=== PATIENT | female | born 1950 | race Caucasian/White ===

== ENCOUNTER 2018-01-28 15:16 | Inpatient (IN) | payer OTHER ==
[~2018-01-28] VITALS: Ht 172.7 cm; Wt 97.1 kg
[~2018-01-28 15:16] MED LIST: AMOX-CLAV 875-1 EACH PO; ASPIRIN EC81 M1 PO; ATENOLOL25 M1 PO; ATENOLOL25 MG PO; BENZONATATE100 M1 PO; CHERATUSSIN AC118 M1 PO; CLARITHROMYCIN500 M1 PO; COUMADIN 5 MG TA5 MG PO; COUMADIN10 M1 PO; COUMADIN7.5 M1 PO; ECOTRIN81 MG PO; ETHAMBUTOL HCL PO; FUROSEMIDE20 M1 PO; FUROSEMIDE20 MG PO; GABAPENTIN100 M2 PO; GUAIFENESIN DM S5 ML PO; LIVALO2 MG PO; NEURONTIN100 MG PO; RIFABUTIN150 MG PO; SERTRALINE HCL100 MG PO; SERTRALINE HYD100 MG PO; TRAMADOL50 MG PO
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
--- NOTE | 2018-01-28 15:44 | CT SCAN REPORT ---
EXAMINATION: CT HEAD without contrast CLINICAL INFORMATION: Stroke COMPARISON: No prior CT scan available for comparison. TECHNIQUE: Computer axial tomographic sections acquired at 2.5 mm thin section noncontrasted study. DLP: 548 mGy-cm FINDINGS: CEREBRAL HEMISPHERES: There is no evidence of intra-axial or extra-axial mass, hemorrhage or acute infarct. BRAIN PARENCHYMA: Normal valenzuela-white matter differentiation. SUBDURAL SPACE: No bleed. BASAL GANGLIA AND PINEAL GLAND: Unremarkable VENTRICLES: Symmetric and normal in size. CEREBELLUM AND BRAINSTEM: No space-occupying mass, hemorrhage or acute infarct. CEREBELLOPONTINE ANGLES: No lesion found. ORBITS: No intraorbital mass. VESSELS: Unremarkable SKULL BASE: Unremarkable INCLUDED SINUSES AT SKULL BASE: Clear SKULL AND SKIN: No fracture or bone lesion found. IMPRESSION: No CT evidence of intracranial space-occupying mass, bleed or infarct.
[2018-01-28 16:07] LABS: ABSOLUTE BASOPHIL COUNT 0 /CUMM (0.0-0.2); ABSOLUTE EOSINOPHIL COUNT 0.1 /CUMM (0.0-0.7); ABSOLUTE GRANULOCYTE CT 6.6 /CUMM (1.4-6.5); ABSOLUTE LYMPH COUNT 2.2 /CUMM (1.2-3.4); ABSOLUTE MONOCYTE COUNT 0.5 /CUMM (0.10-0.60); BASOPHIL % 0.4 % (0.0-2.0); EOSINOPHIL % 1.5 % (0-5); GRANULOCYTE % 69.8 % (42.2-75.2); HEMATOCRIT 40.5 % (37-47); MEAN CORPUSCULAR HGB 26.2 PG (27.0-31.0); MEAN CORPUSCULAR HGB CONC 32.6 G/DL (33.0-37.0); MEAN CORPUSCULAR VOLUME 80.3 FL (81.0-99.0); MEAN PLATELET VOLUME 7.9 FL (7.4-10.4); PLATELET COUNT 256 /CUMM (130-400); RBC DISTRIBUTION WIDTH 14.9 % (11.5-14.5); RED BLOOD CELL CT 5.04 /CUMM (4.20-5.40); WHITE BLOOD CELL COUNT 9.5 /CUMM (4.8-10.8)
[2018-01-28 16:25] LABS: PT 40.9 SEC (9.4-12.5)
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
[2018-01-28 21:59] VITALS: BP 112/70
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
[2018-01-29 06:30] VITALS: BP 116/62
--- NOTE | 2018-01-29 07:34 | PN- Housestaff ---
Declan Rose 01/29/18 0733: Subjective Follow-up For: small acute L MCA infarct Tele-Events Since Last Visit: NS HR 60-65 Subjective: No complaints or acute events overnight Review of Systems Constitutional: Reports: see HPI. Objective Last 24 Hrs of Vital Signs/I&O Vital Signs Date Time Temp Pulse Resp B/P B/P Pulse O2 O2 Flow FiO2 Mean Ox Delivery Rate 01/29 1438 97.6 56 18 94/56 96 Room Air / 0920 62 110/58 / 0918 62 110/58 03/ 0800 Room Air 03/ 0630 97.9 62 18 116/62 95 03/04 2159 97.8 60 18 112/70 97 03/ 2042 97.7 62 19 144/76 97 Room Air / 1915 69 158/83 03/ 1840 97.6 67 19 158/83 96 Room Air Intake & Output / 1600 01/29 0800 / 0000 Intake Total 120 Output Total Balance 120 Intake, Oral 120 Patient 214 lb 215 lb Weight Weight Bed scale Measurement Method Physical Exam General Appearance: Alert, Oriented X3, Cooperative, No Acute Distress HEENT: Atraumatic, PERRLA, EOMI Cardiovascular: 2/6 systolic murmur, medial sternotomy surgical scar Lungs: Clear to Auscultation, Normal Air Movement Neurological: Normal Gait, Normal Speech, Strength at 5/5 X4 Ext, Normal Tone, Sensation Intact, Cranial Nerves 3-12 NL Extremities: Normal Pulses Current Medications: Current Medications Sig/Heraclio Start time Last Medication Dose Route Stop Time Status Admin Aspirin Buffered 81 MG DAILY 01/29 1000 AC 01/29 PO 0920 Atenolol 25 MG DAILY 01/28 1853 AC 01/29 PO 0920 Atorvastatin Calcium 80 MG 1700 01/29 1700 UNVr PO Furosemide 20 MG DAILY 01/29 1000 CAN PO Gabapentin 200 MG QPM 01/28 2200 AC / PO 2336 Sertraline HCl 100 MG DAILY 01/29 1000 AC / PO 0920 Warfarin Sodium 7.5 MG COUMADIN 1700 ONE 01/28 2359 DC / PO / 0000 2336 Warfarin Sodium 7.5 MG COUMADIN 1700 ONE 01/28 2100 DC PO 01/28 2101 Last 24 Hrs of Lab/Adriano Results Last 24 Hrs of Labs/Mics: Laboratory Tests 01/29/18 1130: Triglycerides 305 H, Cholesterol 302 H, LDL Cholesterol, Calc 205 H, HDL Cholesterol 36 L, Cholesterol/HDL Ratio 8 H 01/29/18 0620: PT 35.5 H, INR 3.22 H 01/28/18 1551: Anion Gap 9, Estimated GFR 55 L, BUN/Creatinine Ratio 19.0, Glucose 93, Calcium 10.6 H, Total Bilirubin 0.9, AST 22, ALT 29, Alkaline Phosphatase 100, Total Protein 6.9, Albumin 4.1, Globulin 2.8, Albumin/Globulin Ratio 1.5, PTH Intact 124.6 H, PT 40.9 H, INR 3.70 H, CBC w Diff NO MAN DIFF REQ, RBC 5.04, MCV 80.3 L, MCH 26.2 L, MCHC 32.6 L, RDW 14.9 H, MPV 7.9, Gran % 69.8, Lymphocytes % 23.3, Monocytes % 5.0, Eosinophils % 1.5, Basophils % 0.4, Absolute Granulocytes 6.6 H, Absolute Lymphocytes 2.2, Absolute Monocytes 0.5, Absolute Eosinophils 0.1, Absolute Basophils 0 Orders Radiology Findings: 01/29/18-1030 [id number] DOPPLER IMPRESSION: There is plaque present in the left internal carotid artery with normal velocities consistent with a minimal 0-49% stenosis. The right side is normal with no plaque seen. 01/29/18-06 MRI-HEAD W/O ALEJO IMPRESSION: - There is a small acute left MCA territory infarct involving the body of the left caudate nucleus, the left frontal hceung radiata, and the upper left putamen. No significant mass effect and no hemorrhagic transformation. - Mild chronic microangiopathy and a chronic lacunar infarct within the right cerebellum. Chronic petechial microhemorrhages within the cerebral hemispheres as described. Assessment/Plan Assessment: Ms. Almaguer is a 67 yo f with a PMH of MVR x2 (bovine, then mechanical) 2009 on Warfarin, hypertension, osteoarthritis, depression who presents to the ED with a R-sided facial droop and R arm weakness L MCA infarct Patient had expressive aphasia and R side apraxia that has now spontaneously resolved. As per neuro she is not a candidate for tPA because she is currently on Warfarin. ECHO 07/2017 demonstrated normal left ventricular ejection fraction visually estimated at >60%, no wall motion abnormality, mechanical valve noted, mild left atrial dilatation, moderate aortic stenosis. CT head on admission negative. Passed bed swallow. * Neurology recommendations appreciated * Cardiology recommendations appreciated * Serial troponins and ECG to r/o ACS negative * TTE to r/o SHD and/or RWMA report pending, if abnormal [facility] to follow * MRI brain showed a small acute L MCA infarct * continue home meds History of mechanical valve * Dose Coumadin as per INR * Will discuss with Neuro if Warfarin should be resumed today after infarct shown on MRI Hyperparathyroidism * Patient will require an outpatient referal to Endocrinology DVT prophylaxis: Warfarin Code: FULL Problem List: 1. Stroke Pain Ratin Pain Location: NA Pain Goal: Remain pain free Pain Plan: NA Tomorrow's Labs & Rationales: CBC BEP INR for Coumadin Cristela Zhou 01/29/18 1537: Attending MD Review Statement Attending Statement Attending MD Statement: examined this patient, discuss w/resident/PA/CALL OR CONTACT CENTRE COACH, agreed w/resident/PA/CALL OR CONTACT CENTRE COACH, reviewed EMR data (avail), discussed with nursing, discussed with case mgmt Attending Assessment/Plan: pt with acute stroke on MRI. will f/u on neuro consult. will cont on coumadin if Neuro ok with it. pt on coumadin for mechanicla MVR> hypercalcemia- will get endo consult as an outpatient. will repeat calcium level in am . hyperlipidemia- starte don high dose statin.
[2018-01-29 08:31] LABS: PT 35.5 SEC (9.4-12.5)
[2018-01-29 09:18] VITALS: BP 110/58
--- NOTE | 2018-01-29 11:10 | MRI REPORT ---
MR BRAIN WITHOUT IV CONTRAST CLINICAL INFORMATION: Weakness and facial droop. COMPARISON: Head CT 01/28/2017. TECHNIQUE: MRI of the brain without contrast was obtained using routine sequences. FINDINGS: There is a small acute left MCA territory infarct involving the body of the left caudate nucleus, the left frontal cheung radiata, and the upper left putamen. No significant mass effect and no hemorrhagic transformation. Small foci of susceptibility artifact within the head of the left caudate remote from the infarct and within the left and right cerebral hemispheres, most likely chronic petechial microhemorrhages. There is a chronic lacunar infarct within the right cerebellum. T2 signal changes throughout the supratentorial white matter suggest mild chronic microangiopathy. There is no hydrocephalus, extra-axial surface collection, or herniation. The major flow voids at the skull base are preserved. The midline structures are normal. The cerebellar tonsils are normally positioned. The craniocervical junction is normal. Osseous marrow signal intensity is homogenous. The visualized soft tissues are unremarkable. IMPRESSION: - There is a small acute left MCA territory infarct involving the body of the left caudate nucleus, the left frontal cheung radiata, and the upper left putamen. No significant mass effect and no hemorrhagic transformation. - Mild chronic microangiopathy and a chronic lacunar infarct within the right cerebellum. Chronic petechial microhemorrhages within the cerebral hemispheres as described.
--- NOTE | 2018-01-29 11:18 | ULTRASOUND REPORT ---
EXAMINATION: US DUPLEX CAROTID AND VERTEBRAL CLINICAL INFORMATION: 67-year-old female with left arm weakness and facial droop. COMPARISON: None TECHNIQUE: Real-time ultrasound and Doppler techniques (integrating B-mode 2D vascular images, Doppler spectral analysis and color flow Doppler imaging) were utilized to interrogate the extracranial carotid and vertebral arteries bilaterally. The degree of stenosis determined by criteria similar to NASCET. FINDINGS: 1. On the right: No plaque is present at the carotid bifurcation and all velocity measurements are normal and do not suggest a stenosis of greater than 50% diameter reduction in the right ICA. The vertebral artery is patent demonstrating antegrade flow. The common carotid artery velocity is 74 cm/s. The internal carotid artery velocities are 70 cm/s systolic and 20 cm/s diastolic. The external carotid artery velocity is 60 cm/s. 2. On the left: Plaque is present at the carotid bifurcation but velocity measurements are normal and do not suggest a stenosis of greater than 50% diameter reduction in the left ICA. The vertebral artery is patent demonstrating antegrade flow. The common carotid artery velocity is 96 cm/s. The internal carotid artery velocities are 71 cm/s systolic and 15 cm/s diastolic. The external carotid artery velocity is 68 cm/s. IMPRESSION: There is plaque present in the left internal carotid artery with normal velocities consistent with a minimal 0-49% stenosis. The right side is normal with no plaque seen.
[2018-01-29 14:38] VITALS: BP 94/56
--- NOTE | 2018-01-29 17:55 | PN- Cardiology ---
Subjective Subjective: Feeling better. No further neurologic events. No chest pain. No palpitations. No diaphoresis. No lightheadedness or dizziness. Objective Vital Signs and I&Os Vital Signs Date Time Temp Pulse Resp B/P B/P Pulse O2 O2 Flow FiO2 Mean Ox Delivery Rate 01/29 1438 97.6 56 18 94/56 96 Room Air 03/ 0920 62 110/58 03/ 0918 62 110/58 03/ 0800 Room Air / 0630 97.9 62 18 116/62 95 03/04 2159 97.8 60 18 112/70 97 03/ 2042 97.7 62 19 144/76 97 Room Air / 1915 69 158/83 03/ 1840 97.6 67 19 158/83 96 Room Air Intake & Output 01/29 1600 01/29 0800 / 0000 / 1600 01/28 0800 01/28 0000 Intake Total 120 Output Total Balance 120 Intake, Oral 120 Patient 214 lb 215 lb 230 lb Weight Weight Bed scale Reported by Patient Measurement Method Physical Exam: Gen: The patient is in no acute distress HEENT: Normal nose, ears, and oropharynx. Pupils equal bilaterally. Conjunctiva normal. Neck: Supple with no JVD, no masses, and no thyromegaly Lungs: Clear to auscultation with normal respiratory effort HeartS1, S2, mechanical mitral valve sounds, no peripheral edema, 2+ pulses in the lower extremities bilaterally Abdomen: Soft, nontender, no masses. No hepatomegaly. No splenomegaly Extremities: No clubbing or cyanosis. Normal muscle strength in the upper and lower extremities Skin: Normal skin turgor with no skin ulcers or lesions noted. Neuro: Cranial nerves intact. Sensation intact Current Medications: Current Medications Sig/Heraclio Start time Last Medication Dose Route Stop Time Status Admin Aspirin Buffered 81 MG DAILY 01/29 1000 AC 01/29 PO 0920 Atenolol 25 MG DAILY 01/28 1853 AC 01/29 PO 0920 Atorvastatin Calcium 80 MG 1700 01/29 1700 AC 01/29 PO 1744 Furosemide 20 MG DAILY 01/29 1000 CAN PO Gabapentin 200 MG QPM 01/28 2200 AC 01/28 PO 2336 Patient Medication 1 ED ONE ONE 01/29 1415 DC Teaching ED 01/29 1416 Sertraline HCl 100 MG DAILY 01/29 1000 AC 01/29 PO 0920 Warfarin Sodium 7.5 MG COUMADIN 1700 ONE 01/29 1815 UNVr PO 01/29 1816 Warfarin Sodium 7.5 MG COUMADIN 1700 ONE 01/28 2359 DC 03 PO 01/29 0000 2336 Warfarin Sodium 7.5 MG COUMADIN 1700 ONE 01/28 2100 DC PO 01/28 2101 Results Last 48 Hrs of Labs/Mics: Laboratory Tests 01/29/18 1130: Triglycerides 305 H, Cholesterol 302 H, LDL Cholesterol, Calc 205 H, HDL Cholesterol 36 L, Cholesterol/HDL Ratio 8 H 01/29/18 0620: PT 35.5 H, INR 3.22 H 01/28/18 1551: Anion Gap 9, Estimated GFR 55 L, BUN/Creatinine Ratio 19.0, Glucose 93, Calcium 10.6 H, Total Bilirubin 0.9, AST 22, ALT 29, Alkaline Phosphatase 100, Total Protein 6.9, Albumin 4.1, Globulin 2.8, Albumin/Globulin Ratio 1.5, PTH Intact 124.6 H, PT 40.9 H, INR 3.70 H, CBC w Diff NO MAN DIFF REQ, RBC 5.04, MCV 80.3 L, MCH 26.2 L, MCHC 32.6 L, RDW 14.9 H, MPV 7.9, Gran % 69.8, Lymphocytes % 23.3, Monocytes % 5.0, Eosinophils % 1.5, Basophils % 0.4, Absolute Granulocytes 6.6 H, Absolute Lymphocytes 2.2, Absolute Monocytes 0.5, Absolute Eosinophils 0.1, Absolute Basophils 0 Recent Imaging Studies: MRI: - There is a small acute left MCA territory infarct involving the body of the left caudate nucleus, the left frontal cheung radiata, and the upper left putamen. No significant mass effect and no hemorrhagic transformation. - Mild chronic microangiopathy and a chronic lacunar infarct within the right cerebellum. Chronic petechial microhemorrhages within the cerebral hemispheres as described. Carotid Doppler study: There is plaque present in the left internal carotid artery with normal velocities consistent with a minimal 0-49% stenosis. The right side is normal with no plaque seen. Assessment/Plan Assessment/Plan Assessment: 1. Mechanical mitral valve replacement 2. Hypertension 3. MAC 4. Acute CVA Plan: * Follow neurology recommendations. * Continue warfarin and aspirin as recommended by neuro * Echocardiogram pending * If no thrombus seen on echocardiogram, will arrange [facility] tomorrow for further evaluation to rule out cardiac source of embolism * N.p.o. after midnight for [facility] Continue telemetry? Yes
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
[2018-01-29 22:00] VITALS: BP 114/64
[2018-01-30 06:00] VITALS: BP 92/50
[2018-01-30 07:54] LABS: ABSOLUTE BASOPHIL COUNT 0 /CUMM (0.0-0.2); ABSOLUTE EOSINOPHIL COUNT 0.2 /CUMM (0.0-0.7); ABSOLUTE GRANULOCYTE CT 4.5 /CUMM (1.4-6.5); ABSOLUTE LYMPH COUNT 1.9 /CUMM (1.2-3.4); ABSOLUTE MONOCYTE COUNT 0.4 /CUMM (0.10-0.60); BASOPHIL % 0.4 % (0.0-2.0); EOSINOPHIL % 2.5 % (0-5); GRANULOCYTE % 63.7 % (42.2-75.2); HEMATOCRIT 39.5 % (37-47); MEAN CORPUSCULAR HGB 26.7 PG (27.0-31.0); MEAN CORPUSCULAR VOLUME 80.9 FL (81.0-99.0); MEAN PLATELET VOLUME 8.2 FL (7.4-10.4); PLATELET COUNT 216 /CUMM (130-400); RBC DISTRIBUTION WIDTH 14.7 % (11.5-14.5); RED BLOOD CELL CT 4.88 /CUMM (4.20-5.40); WHITE BLOOD CELL COUNT 7.1 /CUMM (4.8-10.8)
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
--- NOTE | 2018-01-30 09:29 | ECHOCARDIOGRAM REPORT ---
FABRICIO TREJO Age: 67 : 1950 Gender: F Exam Date: 01/29/2018 11:11 Exam Location: [address] Ht (in): 68 Wt (lb): 215 BSA: 2.20 BP: 110 / 58 Ordering Physician: Lety Steinberg MD Referring Physician: Lety Steinberg MD Technologist: Darin Finch [facility] Room Number: 181-1 Indications: TIA Rhythm: Sinus Technical Quality: Fair FINDINGS Left Ventricle Normal size left ventricle. Moderate concentric left ventricular hypertrophy. Left ventricular ejection fraction is estimated at >60%. Normal left ventricular wall motion. Right Ventricle Normal right ventricular size and function. Right Atrium Normal right atrial size. Left Atrium Normal left atrial size. Mitral Valve Mechanical prosthetic mitral valve is poorly visualized. Can not rule out thrombus. Recommend LICHA for further evaluation if clinical suspicion for prosthetic valve thrombus. Peak gradient across th prosthetic valve is 10 mmHg, and mean gradient is 3 mmHg. Aortic Valve Diffuse thickening of the aortic valve cusps with reduced excursion. Mild aortic regurgitation. Moderate aortic stenosis. Tricuspid Valve Tricuspid valve not well visualized, grossly normal. Trace tricuspid regurgitation. Right ventricular systolic pressure estimated at 39 mmHg. Pulmonic Valve Pulmonic valve not well visualized, grossly normal. Pericardium No pericardial effusion. Great Vessels Normal size aortic root. CONCLUSIONS Normal size left ventricle. Moderate concentric left ventricular hypertrophy. Left ventricular ejection fraction is estimated at >60%. Mechanical prosthetic mitral valve is poorly visualized. Can not rule out thrombus. Recommend LICHA for further evaluation if clinical suspicion for prosthetic valve thrombus. Peak gradient across th prosthetic valve is 10 mmHg, and mean gradient is 3 mmHg. Right ventricular systolic pressure estimated at 39 mmHg. Artie Townsend M.D. (Electronically Signed) Final Date: 30 January 2018 09:28 MEASUREMENTS (Male / Female) Normal Values 2D ECHO LV Diastolic Diameter PLAX 3.2 cm 4.2 - 5.9 / 3.9 - 5.3 cm LV Systolic Diameter PLAX 2.0 cm 2.1 - 4.0 cm LV Fractional Shortening PLAX 37.5 % 25 - 46 % LV Ejection Fraction 2D Teich 68.9 % IVS Diastolic Thickness 1.5 cm LVPW Diastolic Thickness 1.4 cm LV Relative Wall Thickness 0.9 LVOT Diameter 1.7 cm Aortic Root Diameter 2.9 cm LA Systolic Diameter LX 3.4 cm 3.0 - 4.0 / 2.7 - 3.8 cm Ascending Aorta Diameter 2.7 cm DOPPLER AV Peak Velocity 327.0 cm/s AV Peak Gradient 42.8 mmHg AV Mean Velocity 205.0 cm/s AV Mean Gradient 20.0 mmHg AV Velocity Time Integral 83.4 cm AI Deceleration Moody 91.4 cm/s AI Peak Velocity 307.0 cm/s AI Pressure Half Time 983.0 ms AI Peak Gradient 37.7 mmHg LVOT Peak Velocity 182.0 cm/s LVOT Peak Gradient 13.2 mmHg LVOT Mean Velocity 113.0 cm/s LVOT Mean Gradient 6.0 mmHg LVOT Velocity Time Integral 44.0 cm LVOT Stroke Volume 99.9 cm AV Area Cont Eq vti 1.2 cm AV Area Cont Eq pk 1.3 cm MV Peak Velocity 161.0 cm/s MV Peak Gradient 10.4 mmHg MV Mean Velocity 77.3 cm/s MV Mean Gradient 3.0 mmHg Mitral E Point Velocity 148.0 cm/s Mitral A Point Velocity 88.8 cm/s Mitral E to A Ratio 1.7 MV PHT Velocity 167.0 cm/s MV Deceleration Moody 538.0 cm/s MV Pressure Half Time 93.1 ms MV Area PHT 2.4 cm MV Deceleration Time 257.0 ms MR Peak Velocity 287.0 cm/s MR Peak Gradient 32.9 mmHg TR Peak Velocity 273.0 cm/s TR Peak Gradient 29.8 mmHg Right Atrial Pressure 10.0 mmHg Pulmonary Artery Systolic Pressu 39.8 mmHg Right Ventricular Systolic Press 39.8 mmHg PV Peak Velocity 96.5 cm/s PV Peak Gradient 3.7 mmHg PV Mean Velocity 60.8 cm/s PV Mean Gradient 2.0 mmHg PV Velocity Time Integral 20.9 cm LV E' Lateral Velocity 6.9 cm/s Mitral E to LV E' Lateral Ratio 21.4 LV E' Septal Velocity 4.1 cm/s Mitral E to LV E' Septal Ratio 36.2
[2018-01-30 10:45] LABS: PT 32.3 SEC (9.4-12.5)
[2018-01-30 12:30] VITALS: BP 100/50
--- NOTE | 2018-01-30 12:47 | PN- Cardiology ---
Subjective Subjective: Feeling better. No further neurologic events. No chest pain. No palpitations. No diaphoresis. No lightheadedness or dizziness. LICHA completed without complication Objective Vital Signs and I&Os Vital Signs Date Time Temp Pulse Resp B/P B/P Pulse O2 O2 Flow FiO2 Mean Ox Delivery Rate 01/30 08 Room Air 01/30 600 97.7 57 18 92/50 96 01/29 2200 98.8 62 18 114/64 94 Room Air 01/29 1438 97.6 56 18 94/56 96 Room Air Intake & Output 01/30 1600 01/30 0800 01/30 0000 01/29 1600 01/29 0801/29 0000 Intake Total 360 120 Output Total Balance 360 120 Intake, Oral 360 120 Patient 214 lb 214 lb 215 lb Weight Weight Bed scale Bed scale Measurement Method Physical Exam: Gen: The patient is in no acute distress HEENT: Normal nose, ears, and oropharynx. Pupils equal bilaterally. Conjunctiva normal. Neck: Supple with no JVD, no masses, and no thyromegaly Lungs: Clear to auscultation with normal respiratory effort HeartS1, S2, mechanical mitral valve sounds, no peripheral edema, 2+ pulses in the lower extremities bilaterally Abdomen: Soft, nontender, no masses. No hepatomegaly. No splenomegaly Extremities: No clubbing or cyanosis. Normal muscle strength in the upper and lower extremities Skin: Normal skin turgor with no skin ulcers or lesions noted. Neuro: Cranial nerves intact. Sensation intact Current Medications: Current Medications Sig/Heraclio Start time Last Medication Dose Route Stop Time Status Admin Aspirin Buffered 81 MG DAILY 01/29 1000 AC 01/29 PO 0920 Atenolol 25 MG DAILY 01/28 1853 DC 01/29 PO 0920 Atorvastatin Calcium 80 MG 1700 01/29 1700 AC / PO 1744 Gabapentin 200 MG QPM 01/28 2200 AC 01/29 PO 2239 Lidocaine 0 .STK-MED ONE 01/30 1014 DC TOP Patient Medication 1 ED ONE ONE 01/29 1415 DC 01/30 Teaching ED 01/29 1416 0711 Sertraline HCl 100 MG DAILY 01/29 1000 AC 01/29 PO 0920 Warfarin Sodium 7.5 MG COUMADIN 1700 ONE 01/29 1815 DC 01/29 PO 01/29 1816 2238 Results Last 48 Hrs of Labs/Mics: Laboratory Tests 01/30/18 0917: PT 32.3 H, INR 2.93 H 01/30/18 0618: Anion Gap 10, Estimated GFR > 60, BUN/Creatinine Ratio 24.3, CBC w Diff NO MAN DIFF REQ, RBC 4.88, MCV 80.9 L, MCH 26.7 L, MCHC 33.0, RDW 14.7 H, MPV 8.2, Gran % 63.7, Lymphocytes % 27.3, Monocytes % 6.1, Eosinophils % 2.5, Basophils % 0.4, Absolute Granulocytes 4.5, Absolute Lymphocytes 1.9, Absolute Monocytes 0.4 , Absolute Eosinophils 0.2, Absolute Basophils 0 01/29/18 1130: Triglycerides 305 H, Cholesterol 302 H, LDL Cholesterol, Calc 205 H, HDL Cholesterol 36 L, Cholesterol/HDL Ratio 8 H 01/29/18 0620: PT 35.5 H, INR 3.22 H 01/28/18 1551: Anion Gap 9, Estimated GFR 55 L, BUN/Creatinine Ratio 19.0, Glucose 93, Calcium 10.6 H, Total Bilirubin 0.9, AST 22, ALT 29, Alkaline Phosphatase 100, Total Protein 6.9, Albumin 4.1, Globulin 2.8, Albumin/Globulin Ratio 1.5, PTH Intact 124.6 H, PT 40.9 H, INR 3.70 H, CBC w Diff NO MAN DIFF REQ, RBC 5.04, MCV 80.3 L, MCH 26.2 L, MCHC 32.6 L, RDW 14.9 H, MPV 7.9, Gran % 69.8, Lymphocytes % 23.3, Monocytes % 5.0, Eosinophils % 1.5, Basophils % 0.4, Absolute Granulocytes 6.6 H, Absolute Lymphocytes 2.2, Absolute Monocytes 0.5, Absolute Eosinophils 0.1, Absolute Basophils 0 Recent Imaging Studies: LICHA performed today. The mechanical mitral valve appears to be functioning normally. No thrombus is evident, however visualization is significantly limited by the shadowing from the mechanical valve. Assessment/Plan Assessment/Plan Assessment: 1. Mechanical mitral valve replacement 2. Hypertension 3. MAC 4. Acute CVA 5. LICHA completed. No thrombus is visualized. Plan: * Follow neurology recommendations. * Continue warfarin and aspirin * Would recommend keeping INR in the upper half of the usual range for mechanical valve, which would be 3.0 to 3.5 * The patient should follow-up with her usual blue leather setter, Dr. Martinez, 1 week after discharge Continue telemetry? Yes
[2018-01-30 14:47] VITALS: BP 100/50
--- NOTE | 2018-01-30 15:24 | Patient Discharge Instructions ---
Discharge Instructions General Discharge Information You were seen/treated for: Difficulty in the speaking and weakness in the left side of the hand secondary to acute stroke. Special Instructions: Please follow-up with the speech therapist Please follow-up with your PCP within 3 days to reconsider the institution of atenolol. We stopped it because your blood pressure was low. We started you on New antihyperlipidemic drugs. If you started feeling pain in your muscles, than discussed with your PCP for reconsideration of antihyperlipidemic. You need to follow custom designer for further evaluation of hypercalcemia possibly secondary to primary hyperparathyroidism. Follow up with the Neurologist within 1-2 weeks upon discharge Diet Recommended Diet: Heart Healthy Acute Coronary Syndrome Inclusion Criteria At DC or during hospital stay patient has or had the following: ACS DIAGNOSIS No Discharge Core Measures Meds if any: Prescribed or Continued at Discharge Meds if any: NOT Prescribed or Continued at Discharge Congestive Heart Failure Inclusion Criteria At DC or during hospital stay patient has or had the following: CHF DIAGNOSIS No Discharge Core Measures Meds if any: Prescribed or Continued at Discharge Meds if any: NOT Prescribed or Continued at Discharge Cerebrovascular accident Inclusion Criteria At DC or during hospital stay patient has or had the following: CVA/TIA Diagnosis Yes Discharge Core Measures Meds if any: Prescribed or Continued at Discharge Statin (required if LDL =>70) Yes Anticoagulant Yes Meds if any: NOT Prescribed or Continued at Discharge Venous thromboembolism Inclusion Criteria VTE Diagnosis No VTE Type NONE VTE Confirmed by (Test) NONE Discharge Core Measures - Per Current guidelines, there needs to be overlap - treatment for the first 5 days of Warfarin therapy. - If discharged on Warfarin prior to 5 days of - overlap therapy, the patient will need to be - assessed for post discharge needs including - *Post discharge parental anticoagulation - *Warfarin and/or parental anticoagulation education - *Follow up date to check INR post discharge At least 5 days overlap therapy as Inpatient No Meds if any: Prescribed or Continued at Discharge Note: Overlap Therapy is Warfarin and Anticoagulant Meds if any: NOT Prescribed or Continued at Discharge
[2018-01-30] MEDS ORDERED: ATORVASTATIN CA80 M1 PO (15:44)
[2018-01-30 15:57] LABS: ABSOLUTE BASOPHIL COUNT 0 /CUMM (0.0-0.2); ABSOLUTE EOSINOPHIL COUNT 0.1 /CUMM (0.0-0.7); ABSOLUTE GRANULOCYTE CT 5.1 /CUMM (1.4-6.5); ABSOLUTE MONOCYTE COUNT 0.4 /CUMM (0.10-0.60); BASOPHIL % 0.2 % (0.0-2.0); GRANULOCYTE % 66.5 % (42.2-75.2); HEMATOCRIT 38.7 % (37-47); MEAN CORPUSCULAR HGB 26.5 PG (27.0-31.0); MEAN CORPUSCULAR HGB CONC 33.2 G/DL (33.0-37.0); MEAN CORPUSCULAR VOLUME 79.8 FL (81.0-99.0); MEAN PLATELET VOLUME 7.6 FL (7.4-10.4); PLATELET COUNT 220 /CUMM (130-400); RBC DISTRIBUTION WIDTH 14.6 % (11.5-14.5); RED BLOOD CELL CT 4.85 /CUMM (4.20-5.40); WHITE BLOOD CELL COUNT 7.7 /CUMM (4.8-10.8)
--- NOTE | 2018-01-31 07:41 | Discharge Summary ---
Visit Information Visit Dates Admission Date: 01/29/18 Discharge Date: 01/30/18 Hospital Course Course Attending Physician: Abelardo EAGLE,Cristela Salmeron Primary Care Physician: Ame EAGLE,[facility] Course: Ms. 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 ECG -NSR, HR 69, wide QRS V5/V6, ST depression in V4,? interventricular conduction defect. Stroke involving the L MCA Neurology and Cardiology were consulted. CT head on admission was negative. As per neurology the patient was not a candidate for tPA because she was on Warfarin. She was continued on her home dose Warfarin and started on high dose statin. Her lipid panel was significantly elevated. Serial troponins and ECG were negative. Carotid US demonstrated a plaque present in the left internal carotid artery with normal velocities consistent with a minimal 0-49% stenosis. Follow up MRI brain showed a small acute L MCA infarct without mass effect and no hemorrhage. A TTE was done to identify a source, it demonstrated left ventricular ejection fraction is estimated at >60% without structural heart disease or wall motion abnormalities but could not rule out thrombus. Follow up LICHA was also negative. Speech therapy reported patient showed no signs of dysphagia. She was discharged home stable and instructed to follow up with Cardiology and Neurology as an outpatient. History of mechanical valve We dosed her Coumadin as per INR Hyperparathyroidism Her PTH was 124.6, Calcium 10.6. We gave her an outpatient referral to Endocrinology Hypotension We discontinued her Atenolol DVT prophylaxis: Warfarin Allergies: Coded Allergies: morphine (DRY HEAVES 08/03/17) Pertinent Lab Results: 01/28/18-1519 CT HEAD WO IV CONTRAST IMPRESSION: No CT evidence of intracranial space-occupying mass, bleed or infarct. 01/29/18-ECHOCARDIOGRAM CONCLUSIONS Normal size left ventricle. Moderate concentric left ventricular hypertrophy. Left ventricular ejection fraction is estimated at >60%. Mechanical prosthetic mitral valve is poorly visualized. Can not rule out thrombus. Recommend LICHA for further evaluation if clinical suspicion for prosthetic valve thrombus. Peak gradient across th prosthetic valve is 10 mmHg, and mean gradient is 3 mmHg. Right ventricular systolic pressure estimated at 39 mmHg. 01/29/18-0600 MRI-HEAD W/O ALEJO IMPRESSION: - There is a small acute left MCA territory infarct involving the body of the left caudate nucleus, the left frontal cheung radiata, and the upper left putamen. No significant mass effect and no hemorrhagic transformation. - Mild chronic microangiopathy and a chronic lacunar infarct within the right cerebellum. Chronic petechial microhemorrhages within the cerebral hemispheres as described. 01/29/18-1030 [id number] DOPPLER IMPRESSION: There is plaque present in the left internal carotid artery with normal velocities consistent with a minimal 0-49% stenosis. The right side is normal with no plaque seen. Disposition Summary Disposition Principal Diagnosis: Stroke Additional Diagnosis: None Discharge Disposition: home or self care Discharge Instructions General Discharge Information Code Status: Full Code Patient's Diet: Heart healthy Patient's Activity: As tolerated Follow-Up Instructions/Appts: Please follow-up with the speech therapist Please follow-up with your PCP within 3 days to reconsider the institution of atenolol. We stopped it because your blood pressure was low. We started you on New antihyperlipidemic drugs. If you started feeling pain in your muscles, than discussed with your PCP for reconsideration of antihyperlipidemic. You need to follow rock worker for further evaluation of hypercalcemia possibly secondary to primary hyperparathyroidism. Follow up with the Neurologist within 1-2 weeks upon discharge Medications at Discharge Discharge Medications: Stop taking the following medications: Atenolol (Atenolol) 25 MG TABLET ORAL DAILY Qty = 90 Continue taking these medications: Warfarin Sodium (Coumadin) 10 MG TABLET 1 Tablet ORAL ZACKARY Comments: THIS DOSE NOT GIVEN IN HOSPTIAL Warfarin Sodium (Coumadin) 7.5 MG TABLET 1 Tablet ORAL Comments: Last Taken:01/29/18 Time: 1030 PM Aspirin (Ecotrin*) 81 MG TABLET.DR 1 Tablet ORAL DAILY Comments: Last Taken:01/30/18 Time: 0130 PM Gabapentin (Gabapentin) 100 MG CAPSULE 2 Capsule ORAL Every night Qty = 180 Comments: Last Taken:01/29/18 Time: 10:30 PM Sertraline HCl (Sertraline HCl) 100 MG TABLET 1 Tablet ORAL DAILY Qty = 90 Comments: Last Taken:01/30/18 Time: 0130 PM Furosemide (Furosemide) 20 MG TABLET 1 Tablet ORAL DAILY Qty = 90 Comments: NOT GIVEN IN HOSPITAL Start taking the following new medications: Atorvastatin Calcium (Atorvastatin Calcium) 80 MG TABLET 1 Tablet ORAL 5 PM Qty = 90 No Refills Instructions: PLEASE DISCUSS WITH PCP/LFT Copies To: Audra EAGLE,Thierry; Juan EAGLE,Kiran; Ame EAGLE,Ksenia; Cary EAGLE,Artie
--- NOTE | 2018-01-31 11:11 | ECHOCARDIOGRAM REPORT ---
FABRICIO TREJO Age: 67 : Gender: F Exam Date: 01/30/2018 10:07 Exam Location: [address] Ht (in): Wt (lb): BSA: BP: / Ordering Physician: Artie Townsend MD Referring Physician: Artie Townsend MD Technologist: Anny Perez Room Number: 181 Indications: STROKE Rhythm: Sinus Technical Quality: Good Medications propofol Ease of Transducer Insertion No Difficulty Complications none Technical Difficulty no difficulty FINDINGS Left Ventricle Normal size left ventricle. Moderate concentric left ventricular hypertrophy. Left ventricular ejection fraction is estimated at >60%. Normal left ventricular wall motion. Right Ventricle Normal right ventricular size and function. Right Atrium Normal right atrial size. Left Atrium Normal left atrial size. LA Appendage Normal left atrial appendage. IA Septum Normal interatrial septum. Saline bubble study reveals no evidence of shunt. Mitral Valve There is a mechanical prosthetic mitral valve which is well-seated and appears to be functioning normally. No thrombus is seen, however visualization is limited due to shadowing from the mechanical valve. Peak gradient across the prosthesis is 2.9 mmHg. Mean gradient 2.0 mmHg. Mild mitral regurgitation. Aortic Valve The aortic valve is mildly thickened. Mild to moderate aortic stenosis. Mild aortic regurgitation. Tricuspid Valve Structurally normal tricuspid valve. Mild tricuspid regurgitation. Pulmonic Valve Pulmonic valve not well visualized, grossly normal. Pericardium No pericardial effusion. Great Vessels Normal size aortic root. Mild atherosclerosis of the descending aorta. CONCLUSIONS Normal size left ventricle. Moderate concentric left ventricular hypertrophy. Left ventricular ejection fraction is estimated at >60%. There is a mechanical prosthetic mitral valve which is well-seated and appears to be functioning normally. No thrombus is seen, however visualization is limited due to shadowing from the mechanical valve. Peak gradient across the prosthesis is 2.9 mmHg. Mean gradient 2.0 mmHg. Mild mitral regurgitation. Mild to moderate aortic stenosis. Mild aortic regurgitation. Mild tricuspid regurgitation. Mild atherosclerosis of the descending aorta. Artie Townsend M.D. (Electronically Signed) Final Date: 31 January 2018 11:10 MEASUREMENTS (Male / Female) Normal Values DOPPLER MV Peak Velocity 85.5 cm/s MV Peak Gradient 2.9 mmHg MV Mean Velocity 63.9 cm/s MV Mean Gradient 2.0 mmHg
== END 2018-01-30 17:30 | DRG 65 ==
LOC: ERH 15:16 → ERHI 17:34 → 1NO 17:34 → ENRESERV 19:02 → ENTRNSPT 19:48 → CMPTRNSPT 19:53 → ENTRNSPT 20:42 → EDTRNSPT 20:53 → EDTRNSPTSTS 20:53 → 1NO 20:59 → CMPTRNSPT 21:13 → 1NO 01-29 07:27 → ENPENDDIS 01-30 17:08 → ENTRNSPT 01-30 17:09 → EDTRNSPT 01-30 17:12 → EDTRNSPTSTS 01-30 17:12 → CMPTRNSPT 01-30 17:24 → 1NO 01-30 17:30
PROVIDERS: Emergency Medicine; Internal Medicine Adolescent Medicine; Student in an Organized Health Care Education/Training Program
PROC: B24BZZ4 Ultrasonography of Heart with Aorta, Transesophageal (ICD-10-PCS; principal; 2018-01-30)
DX: I63.412 Cerebral infarction due to embolism of left middle cerebral artery (principal); A31.2 Disseminated mycobacterium avium-intracellulare complex (DMAC); E83.52 Hypercalcemia; R47.01 Aphasia; G83.21 Monoplegia of upper limb affecting right dominant side; R29.810 Facial weakness; Z87.891 Personal history of nicotine dependence; Z95.2 Presence of prosthetic heart valve; Z79.01 Long term (current) use of anticoagulants; Z95.3 Presence of xenogenic heart valve; Z88.5 Allergy status to narcotic agent; F32.9 Major depressive disorder, single episode, unspecified; M19.90 Unspecified osteoarthritis, unspecified site; Z90.49 Acquired absence of other specified parts of digestive tract; Z90.710 Acquired absence of both cervix and uterus; Z96.649 Presence of unspecified artificial hip joint; E21.3 Hyperparathyroidism, unspecified
CPT/HCPCS: 1NP; 70551; 36415; 36592; 82436; 93005; 93010; 93306; 93325